=== PATIENT | female | born 1960 | race Caucasian/White ===

== ENCOUNTER → 2017-08-31 | Outpatient (CLI) | payer OTHER ==
[~2017-08-31] MED LIST: Bactrim Ds Tab1 EACH PO; CYCL10 PO; MELO7.5 PO; METO25 PO; Mupirocin22 GM TOP
[2017-09-01 18:38] LABS: HCV Non Reactive (NR)
== END ==
LOC: LAB SHORT 15:38 → LAB EV 15:38
PROVIDERS: Physician Assistant
DX: Z20.9 Contact with and (suspected) exposure to unspecified communicable disease (principal)
CPT/HCPCS: 84460; 86706; 86803; 87389